=== PATIENT | male | born 1985 | race Caucasian/White ===

== ENCOUNTER → 2021-10-19 | Day surgery (SDC) | payer BC ==
[~2021-10-19] VITALS: Ht 185.4 cm; Wt 129.3 kg
[2021-10-19] VITALS (7 sets, daily range): BP systolic 118–136; BP diastolic 58–87; PULSE 88–100; TEMP 97.5–98.8
[~2021-10-19] MED LIST: CLOMID50 MG PO; NORCO 325 MG-51 TAB PO
--- NOTE | 2021-10-19 16:21 | NUR ---
1455 Pt returns from PACU via cart and ANA Becker assist to [facility]. Pt alert and oriented and having no complaints of pain or nausea. Monitors on and alarms set. Call light within reach. Report received from ANA Becker. Pt requests tea and pudding. Pt's present in room. 1505 Pt taking food and drink well. No complications noted. 1545 Pt remains having no complaints. 1555 Pt ambulates to restroom with this RN assist. Pt voids and returns to discharge room with this RN assist. 1600 Discharge instructions given to pt and pt's . All questions answered to their satisfaction. Handed to pt are a thank you card and discharge information. A follow up appt was scheduled for November 03 at 8:30 AM in [place]. 1621 Pt transferred out of the hospital via wheelchair and this RN assist, to private vehicle driven by pt's .
== END ==
LOC: SDCO 09:34
DX: K35.891 Other acute appendicitis without perforation, with gangrene (principal)
CPT/HCPCS: J1100; J1885; J2405; J2704; J3010; J7120